=== PATIENT | female | born 1950 | race African-American/Black ===

== ENCOUNTER → 2021-02-04 10:31 | Outpatient (CLI) | payer OTHER, SELFPAY ==
--- NOTE | ~2021-02-04 | DEXA_ITS ---
Bone Density Report Name: Dayan Javier Age: 70 Sex: Female Ethnicity: White Date of : 1950 Indication: osteopenia; hysterectomy; Referring Provider: Isabella Land Study: Bone densitometry was performed. Exam Date: February 04, 2021 Accession number: [id number] Bone Density: Region BMD T-score Z-score Classification AP Spine (L1-L4) 0.920 -1.2 1.1 Osteopenia Femoral Neck (Left) 0.726 -1.1 0.8 Osteopenia Total Hip (Left) 0.815 -1.0 0.6 Normal Femoral Neck (Right) 0.717 -1.2 0.7 Osteopenia Total Hip (Right) 0.815 -1.0 0.6 Normal Total Hip Mean 0.815 -1.0 0.6 Normal World Health Organization criteria for BMD impression classify patients as: Normal (T-score at or above -1.0), Osteopenia (T-score between -1.0 and -2.5), or Osteoporosis (T-score at or below -2.5). 10-year Fracture Risk(1): Major Osteoporotic Fracture 4.4% Hip Fracture 1.0% Reported Risk Factors: [place] ([place]), Neck BMD=0.717, BMI=26.5, smoking (1) FRAX(R) Version 3.08. Fracture probability calculated for an untreated patient. Fracture probability may be lower if the patient has received treatment. Previous Exams: Region Exam Age BMD T-score BMD Change BMD Change Date g/cm2 vs Baseline vs Previous AP Spine(L1-L4) 02/04/2021 70 0.920 -1.2 0.033* 0.033* 12/27/2015 64 0.886 -1.5 Total Hip(Left) 02/04/2021 70 0.815 -1.0 -0.065* -0.065* 12/27/2015 64 0.880 -0.5 Total Hip(Right) 02/04/2021 70 0.815 -1.0 -0.055* -0.055* 12/27/2015 64 0.870 -0.6 *Denotes significance at 95% confidence level, LSC for AP Spine = 0.022 g/cm2, LSC for Total Hip = 0.027 g/cm2 Clinical Information Provided by Patient: Smokes Has used the following medications: Vitamin D Has the following medical conditions: Hysterectomy Patient maximum height was 65 Menopause Age: 43 No regular weight bearing exercise Does not regularly consume dairy products Drinks caffeinated beverages Onset of menses at age 10 Number of children 3 Impression: The patient has low bone mass, based on the Total Spine T-score. The patient has an estimated ten-year risk of hip fracture of 1% and an estimated ten-year risk of major fracture of 4.4%, based on the WHO FRAX algorithm. The patient has risk factors, including: smoking. The BMD for the Total Hip(Left) decreased, changing by -0.065 since the last DXA exam. The BMD for the Total Hip(Right) decreased,
--- NOTE | ~2021-02-04 | MM_ITS ---
EXAMINATION: MM screening jeanna BI w milagro HISTORY: Screening TECHNIQUE: Craniocaudal and mediolateral oblique 3-D tomosynthesis images were obtained and synthetic 2-D images were generated. CAD analysis was submitted and interpreted. COMPARISON: Comparison to multiple prior studies sequentially, with oldest reviewed study dated 10/2013. BREAST PARENCHYMAL COMPOSITION: The breasts are heterogeneously dense, which may obscure small masses . FINDINGS: There is no evidence of suspicious mass, calcification, or architectural distortion to sugg est malignancy in either breast. There has been no suspicious interval change. IMPRESSION: 1. No mammographic evidence of malignancy. 2. Recommend routine screening mammography in one year. BI-RADS Category 1: Negative Reviewed, dictated and finalized at location A.
== END ==
PROVIDERS: PCP Family Medicine; Visit Provider Nurse Practitioner Family
DX: Z12.31 Encounter for screening mammogram for malignant neoplasm of breast (principal); Z78.0 Asymptomatic menopausal state; M85.88 Other specified disorders of bone density and structure, other site; M85.852 Other specified disorders of bone density and structure, left thigh; M85.851 Other specified disorders of bone density and structure, right thigh
CPT/HCPCS: 77063; 77067; 77080

== ENCOUNTER 2021-07-08 14:32 | Observation (INO) | payer OTHER, SELFPAY ==
[2021-07-08] VITALS (17 sets, daily range): BP systolic 144–185; BP diastolic 70–80; PULSE 86–103; RESP 12–25; TEMP 36.9–37.8; O2SAT 96–100; BMI 25.8
--- NOTE | ~2021-07-08 | XR_ITS ---
EXAMINATION: XR chest 2V DATE: 07/08/2021 15:22 INDICATION: Chest pain for 5 days. TECHNIQUE: Frontal and lateral views of the chest were obtained. COMPARISON: Chest 2 views 02/06/2018 FINDINGS: There is a 2 cm nodule in left midlung zone. A calcified left lung nodule is consistent wit h old granulomatous disease. There are airspace opacities in the mid and lower lung zones. No pleural effusion or pneumothorax. Cardiomegaly is noted. IMPRESSION: 1. 2 cm nodule in left midlung zone suspicious for primary bronchogenic carcinoma. Chest CT with cont rast is recommended. I called this result to Dr. Cruz. 2. Mild airspace opacities in the mid and lower lung zones, likely atelectasis. 3. Cardiomegaly. Reviewed, dictated and finalized at location A. IMPRESSION: 1. 2 cm nodule in left midlung zone suspicious for primary bronchogenic carcino ma. Chest CT with contrast is recommended. I called this result to Dr. Cruz. 2. Mild airspace opacities in the mid and lower lung zones, likely atelectasis. 3. Cardiomegaly.
--- NOTE | ~2021-07-08 | CT_ITS ---
EXAMINATION: CT diagnostic chest wo con DATE: 07/08/2021 15:41 INDICATION: Rule out malignancy. Shortness of breath and chest pain TECHNIQUE: Computed tomography (CT) of the chest was performed without intravenous contrast. Addition al 3D reconstructions utilizing coronal maximum intensity projection (MIP) were performed. Automated exposure control and iterative reconstruction technique were employed. The dose-length product was 38 5.45 mGy-cm. COMPARISON: None FINDINGS: Mild emphysema. Scattered linear and bandlike discoid atelectasis in the lingula, right middle and bi lateral lower lobes. Peripheral wedge-shaped region of consolidation groundglass opacity at the lingu la which accounts for the masslike opacity on the prior radiographs with differential including atele ctasis, pneumonia or pulmonary infarct. Calcified left lower lobar nodules consistent with old granul omatous disease. A couple subcentimeter centrilobular groundglass nodules in the right upper lobe and superior segment of the right lower lobe which are most likely infectious/inflammatory in etiology. No pleural effusion. Cardiomegaly. Small amount of atherosclerotic coronary artery calcific location. Aortic valve calcification. No pericardial effusion. Thoracic aorta is normal in caliber. No patholo gically enlarged thoracic lymphadenopathy. Visualized upper abdomen is unremarkable. Moderate lower c ervical and mild to moderate thoracic and upper lumbar spondylosis. IMPRESSION: 1. Peripheral wedge-shaped region of consolidation groundglass opacity in the lingula corresponding t o the masslike opacity on the prior radiograph with appearance more consistent with atelectasis, pneu monia or pulmonary infarct. Recommend radiographic follow-up to resolution. 2. Mild emphysema. 3. Cardiomegaly. Reviewed, dictated and finalized at location A. IMPRESSION: 1. Peripheral wedge-shaped region of consolidation groundglass opacity in the l ingula corresponding to the masslike opacity on the prior radiograph with appea merrick more consistent with atelectasis, pneumonia or pulmonary infarct. Recomme nd radiographic follow-up to resolution. 2. Mild emphysema. 3. Cardiomegaly.
--- NOTE | ~2021-07-08 | US_ITS ---
EXAMINATION: US venous doppler [facility] DATE: 07/09/2021 09:02 INDICATION: Lower limb pain. Pulmonary embolism. TECHNIQUE: Grayscale ultrasound images without and with compression and Doppler ultrasound images of the bilateral lower extremity veins were obtained. COMPARISON: None. FINDINGS: The visualized portions of right common femoral vein, profunda (deep) femoral vein, femoral vein, pop liteal vein, posterior tibial veins, peroneal veins, gastrocnemius vein, soleal vein and greater saph enous vein outflow are patent. Noncompressible deep venous thrombosis in the left popliteal vein. The visualized portions of left co mmon femoral vein, profunda femoral vein, femoral vein, posterior tibial veins, peroneal veins, gastr ocnemius vein, soleal vein and greater saphenous vein outflow are patent. IMPRESSION: 1. Deep venous thrombosis throughout the left popliteal vein. 2. No deep venous thrombosis in the right lower limb. Reviewed, dictated and finalized at location A.
--- NOTE | ~2021-07-08 | CT_ITS ---
EXAMINATION: CTA chest PE protocol DATE: 07/08/2021 19:10 INDICATION: Chest pain TECHNIQUE: Computed tomography angiography (CTA) of the chest was performed with 100 mL Omnipaque-350 intravenous contrast timed to evaluate the pulmonary arteries. Coronal maximum intensity projection 3D-reconstructions were created by the technologist. The dose-length product (DLP) was 298.37 mGy-cm. Automated exposure control and iterative reconstruction technique were employed. COMPARISON: 1527 hours today FINDINGS: The pulmonary arteries are well-opacified. There are acute pulmonary emboli in segmental br anches of the right upper lobe, right middle lobe, right lower lobe, left upper lobe, left lower lobe , and lingula. The lingular airspace opacity described on earlier CT examination is again seen and li fredi reflects pulmonary infarct. Linear opacities of the lower lobes could also reflect pulmonary inf arct. Cardiomegaly is noted. There are no pathologically enlarged thoracic lymph nodes. There is a 12 mm nodule of the right thyroid lobe. There is mild emphysema. No pleural effusion or pneumothorax is identified. There is mild thoracic spondylosis. IMPRESSION: 1. Widespread bilateral pulmonary emboli. Areas of airspace opacity in the lower lobes and lingula co uld reflect pulmonary infarct. These findings were discussed with Dr. Lupe Kelly MD in the Emergency Department at 1935 hours on 07/08/2021. Reviewed, dictated and finalized at location A. IMPRESSION: 1. Widespread bilateral pulmonary emboli. Areas of airspace opacity in the lowe r lobes and lingula could reflect pulmonary infarct. These findings were discussed with Dr. Lupe Kelly MD in the Emergency Depar tment at 1935 hours on 07/08/2021.
--- NOTE | 2021-07-08 14:38 | ECG_ITS ---
Measurements Intervals [place] Rate: 97 P: 57 [place]: 169 QRS: -22 QRSD: 91 T: 54 QT: 348 QTc: 443 Interpretive Statements SINUS RHYTHM LEFT ATRIAL ENLARGEMENT CANNOT RULE OUT SEPTAL INFARCT, AGE INDETERMINATE BASELINE ARTIFACT- I, II, III, AVR, AVL, AVF, V2-V3 ABNORMAL ECG Electronically Signed On 07-09-2021 10:07:40 CDT by Angel Henley D.O.
[2021-07-08 15:06] LABS: Basophils Percent Auto 0.2 % (0.2-1.2); Eosinophils Percent Auto 0.5 % (0-4.4); Hematocrit 46.6 % (37.0-47.0); Hemoglobin 15.7 g/dL (12.0-15.0); Immature Granulocyte Absolute 0.06 K/mm3 (0.00-0.031); Immature Granulocyte Percent A 0.7 % (0-0.5); Lymphocytes Absolute Auto 1.43 K/mm3 (0.9-3.2); Lymphocytes Percent Auto 16.1 % (18.3-44.2); Mean Corpuscular HGB Conc 33.7 g/dl (32-36); Mean Corpuscular Hemoglobin 34.9 pg (26-34); Mean Corpuscular Volume 103.6 fl (80-100); Mean Platelet Volume 9.1 fl (7.4-10.4); Monocytes Percent Auto 10.8 % (2.6-8.5); Neutrophils Absolute Auto 6.4 K/mm3 (1.3-6.7); Neutrophils Percent Auto 71.7 % (45.5-73.1); Platelet Count Result 193 k/mm3 (150-375); Red Cell Distribution Width 14.4 % (11.5-14.5); White Blood Count 8.9 K/mm3 (4.5-10.0)
[2021-07-08 15:15] LABS: Prothrombin Time 12.8 Seconds (11.1-14.7)
[2021-07-08 15:16] LABS: Partial Thromboplastin Time 28.3 SECONDS (22.3-36.8)
[2021-07-08 15:27] LABS: Anion Gap 11 mmol/L (8-16); Blood Urea Nitrogen 6 mg/dL (7-17); Calcium 9.6 mg/dL (8.4-10.2); Carbon Dioxide 25 mmol/L (22-30); Chloride 98 mmol/L (98-107); Estimated CRCL calculation 76 ml/min; Estimated Glomerular Filt Rate > 60; Glucose 95 mg/dL (65-110); Potassium 3.4 mmol/L (3.4-5.0); Sodium 134 mmol/L (137-145)
[2021-07-08 15:39] LABS: Troponin I < 0.012 ng/mL (0.000-0.034)
--- NOTE | 2021-07-08 17:18 | ED.GENADULT ---
HPI - General Adult General Chief complaint: Chest Pain Stated complaint: chest pain Time Seen by Provider: 07/08/21 16:51 Source: patient History of Present Illness HPI narrative: Patient is a 70 y/o female complaining of mid sternal chest pain starting 4-5 days ago. She describes her chest pain as pressure and rates it as 6/10 currently. There is no pain radiation. There is no alleviating or exacerbating factor. She has some SOB, but no cough or fever. She also has some tingling on the bottom of her left foot starting today. Related Data Allergies Allergy/AdvReac Type Severity Reaction Status Date / Time aspirin Allergy Unknown Sweating Verified 07/08/21 13:56 Review of Systems Constitutional: Constitutional: Denies chills, Denies fever(s), Denies headache(s) and Denies weakness Eyes: Eyes: Denies blurry vision ENT: Denies headache(s) and Denies neck pain Cardiovascular: Cardiovascular: Reports chest pain and Reports dyspnea Respiratory: Respiratory: Denies cough and Reports dyspnea Gastrointestinal: Gastrointestinal: Denies abdominal pain, Denies diarrhea, Denies nausea and Denies vomiting Genitourinary: Genitourinary: Denies hematuria and Denies dysuria Musculoskeletal: Musculoskeletal: Denies back pain, Denies neck pain and Reports other (left leg pain) Neurologic: Denies headache(s) and Denies weakness PMFSH Past Medical History Medical History Hypertension Impaired fasting glucose Post menopausal problems Screening mammogram, encounter for Tingling of both feet Wellness examination Surgical History Surgical History History of hysterectomy Family History Family History Mother Hypertension Family history of coronary artery disease Father Family history of diabetes mellitus in first degree relative Family history of lung cancer Social History Social History Years smoked: 30 Smoking status: Current every day smoker Tobacco type: cigarettes Second hand tobacco smoke exposure: No Alcohol intake: current Drinks per week: 2 Substance use: never Substance use type: does not use Gender identity (if verbalized by the patient): Female Sexual Orientation (if Verbalized by the Patient): Straight or Heterosexual Exam Const: General: no acute distress and well developed Orientation/consciousness: oriented to person, oriented to place, oriented to time and patient oriented x3 HENMT: Head: normocephalic Ears: external ears normal General nose exam: Normal external nose present Eyes: General: appearance normal, both eyes and all related structures Conjunctivae: conjunctivae normal Neck: Neck: normal visual inspection and full ROM Chest: Chest palpation & inspection: normal inspection of the chest and no tenderness Resp: Effort & Inspection: normal respiratory effort Auscultation: clear to auscultation bilaterally Cardio: Rate: regular rate Rhythm: regular rhythm GI: GI Palp: No abdominal tenderness and Yes Soft to palpation Skin: General skin exam: normal color and turgor normal Neuro: General: oriented to person, oriented to place, oriented to time and patient oriented x3 Cognition (Neuro): normal cognition Extrem: General: normal to inspection, full ROM and no pedal edema Psych: Appearance: grossly normal Mental Status: mental status grossly normal Affect: normal affect Course Consultations Consultation #1: Discussed with Dr. Real, who agrees to admit. Date: 07/08/21 Time: 20:28 Vital Signs Vital signs: Vital Signs Temperature 36.9 C 07/08/21 14:43 Pulse Rate 103 H 07/08/21 14:43 Respiratory Rate 20 07/08/21 14:43 Blood Pressure 151/80 H 07/08/21 14:43 Pulse Oximetry 97 07/08/21 14:43 Temperature 36.9 C 07/08/21 14:43 Pulse Rat
[2021-07-08 18:13] LABS: Troponin I < 0.012 ng/mL (0.000-0.034)
[2021-07-08 18:15] LABS: D Dimer 3.46 ug/mL (<0.48)
[2021-07-08 19:53] LABS: Add Urine Microscopic? YES; Appearance Urine Clear (Clear); Bilirubin Urine Negative (Negative); Blood Urine 2+ (Negative); Color Urine Yellow (Yellow); Glucose Urine UA Negative (Negative); Ketones Urine 2+ mg/dL (Negative); Leukocyte Esterase Ur Negative LEU/UL (Negative); Mucus Urine Few /lpf; Nitrate Urine Negative (Negative); Protein Urine Negative (Negative); Specific Grav Ur 1.039 (1.001-1.035); Squamous Epithelial Cell Urine Few /hpf (Few); WBC Urine 0-3 /hpf
[2021-07-08 19:54] LABS: Prothrombin Time 12.7 Seconds (11.1-14.7)
[2021-07-08 19:55] LABS: Partial Thromboplastin Time 30.4 SECONDS (22.3-36.8)
[2021-07-08] MEDS: ENOXAPARIN 80 MG/0.8 ML SYRINGE 68 MG SUB-Q (20:00)
--- NOTE | 2021-07-08 22:33 | PM.IMHP ---
H&P: HPI History of Present Illness Date/Time: 07/08/21 22:33 Chief Complaint: Chest pain Narrative: Patient is a 70 y/o female complaining of left-sided chest pain starting about a week ago. The chest pain has been present constantly and approximately about 6 x 10 in intensity without any radiation or aggravating or elevating factor. There was associated shortness of breath. She was trying to see if this will go away on its own. She went to see her regular doctor today and reports she actually was feeling little better compared to previous days however with ongoing chest pain she was sent to the ER for evaluation. She reports that she also felt some tingling sensation in her left sole side forefoot. She denies any recent travel or any surgeries. Denies any history of DVT or PE in the past she does smoke. In the ER chest X showed 2 cm nodule in the left mid lung zone suspicious for primary bronchogenic carcinoma. Mild airspace opacities in the mid and lower lung zones likely atelectasis along with cardiomegaly A diagnosis CT chest was done which showed peripheral ways separate area of consultation ground-glass opacity in the lingula corresponding to the masslike opacity on the prior radiograph with appearance most consistent with atelectasis, pneumonia or pulmonary infarct. Along with mild emphysema and cardiomegaly seen CTA of chest was further done which showed widespread bilateral pulmonary emboli. Areas of airspace opacity in the lower lobes and lingula could reflect pulmonary infarct. Review of Systems Review of Systems: - CONSTITUTIONAL: Denies weight loss, fever and chills. - HEENT: Denies changes in vision and hearing - RESPIRATORY: Reports some SOB and denies cough. - CV: Denies palpitations and reports CP. - GI: Denies abdominal pain, nausea, vomiting and diarrhea. - : Denies dysuria and urinary frequency. - MSK: Denies myalgia and joint pain. - SKIN: Denies rash and pruritus. - NEUROLOGICAL: Denies headache and syncope. - PSYCHIATRIC: Denies recent changes in mood. Denies anxiety and depression. All systems reviewed & are unremarkable except as noted in HPI and below Constitutional: Constitutional: Reports fatigue and Reports weakness Neurologic: Reports weakness Endocrine: Endocrine: Reports fatigue [facility] Past Medical History Medical History (Updated 07/09/21 @ 03:40 by Jeremiah Real MD) Hypertension Impaired fasting glucose Post menopausal problems Screening mammogram, encounter for Tingling of both feet Wellness examination Surgical History Surgical History History of hysterectomy Family History Family History Mother Hypertension Family history of coronary artery disease Father Family history of diabetes mellitus in first degree relative Family history of lung cancer Social History Social History Smoking packs per day: 0.5 Smoking cigarettes per day: 10.0 Years smoked: 30 Smoking pack-years: 15.00 Smoking status: Current every day smoker Tobacco type: cigarettes Second hand tobacco smoke exposure: No Alcohol intake: current Drinks per week: 2 Substance use: never Substance use type: does not use Gender identity (if verbalized by the patient): Female Sexual Orientation (if Verbalized by the Patient): Straight or Heterosexual Spiritual care concerns: No Meds Home Medications and Allergies Home Medications Medication Instructions Recorded Confirmed Type cholecalciferol (vitamin D3) 50 50 mcg PO DAILY #30 cap 12/12/20 07/08/21 Rx mcg (2,000 unit) capsule amlodipine 5 mg tablet 5 mg PO DAILY #90 tablet 02/13/21 07/08/21 Rx hydrochlorothiazide 12.5 mg tablet 12.5 mg PO DAILY #90 tablet 02/13/21 07/08/21 Rx Allergies Allergy/AdvReac Type Severity Reaction Status Date / Time asp
--- NOTE | 2021-07-08 23:19 | ADMGEN ---
This patient, Dayan Javier, was admitted to [facility] Surg Room 324-02. Patient/family oriented to hospital policies and general routines including ID bracelet, bed and alarms, visiting hours, pain management, procedures, bathroom and other care routines, personal items, smoking policy, room service/diet, and visiting hours. Information on how to activate the Rapid Response Team has been discussed. Patient/Family are encouraged to report perceived risks to care and to ask questions if they do not understand what they are told or what they should do.
[2021-07-09] VITALS (10 sets, daily range): BP systolic 126–138; BP diastolic 55–72; PULSE 77–94; RESP 14–18; TEMP 36.5–37.8; O2SAT 95–100
--- NOTE | 2021-07-09 03:39 | ECG_ITS ---
Measurements Intervals [place] Rate: 78 P: 46 [place]: 178 QRS: -26 QRSD: 88 T: 9 QT: 378 QTc: 431 Interpretive Statements SINUS RHYTHM POSSIBLE LEFT ATRIAL ENLARGEMENT BASELINE ARTIFACT- I, II, V3, V5 BORDERLINE ECG Electronically Signed On 07-09-2021 9:54:36 CDT by Angel Henley D.O.
[2021-07-09] MEDS: hydroCHLOROthiazide 12.5 MG CAPSULE PO (09:03)
[2021-07-09] MEDS: ENOXAPARIN 80 MG/0.8 ML SYRINGE 70 MG SUB-Q ×2 (09:03→21:50)
[2021-07-09] MEDS: amLODIPine BESYLATE 5 MG TABLET PO (09:04)
[2021-07-09] MEDS: CHOLECALCIFEROL 1,000 UNITS TABLET 2000 UNITS PO (09:04)
--- NOTE | 2021-07-09 11:27 | PCCCNOTE ---
On 07/09/21, the student, [Yuni Llanos ], provided care and completed [facility] documentation on this patient. I have reviewed the student's documentation and agree with the findings.
--- NOTE | 2021-07-09 11:37 | PC.NURSE ---
On 07/09/21, the student, Lay Damon, provided care and completed [facility] documentation on this patient. I have reviewed the student's documentation and agree with the findings.
--- NOTE | 2021-07-09 13:25 | PM.IMPN ---
Progress Note: A&P Assessment and Plan (1) Pulmonary embolism: Qualifiers: Acute cor pulmonale presence: unspecified Chronicity: unspecified Pulmonary embolism type: unspecified Qualified Code(s): I26.99 - Other pulmonary embolism without acute cor pulmonale Code(s): I26.99 - Other pulmonary embolism without acute cor pulmonale Status: Acute Assessment and Plan: Chest pain and shortness of breath Chest xray Mild airspace opacities in the mid and lower lung zones, 2 CM nodule in left midlung zone suspicious for primary bronchogenic carcinoma Chest CT: Peripheral wedge-shaped region of consolidation ground glass opacity in the lingula corresponding to the masslike opacity on the prior radiograph with appearance more consistent with atelectasis, pneumonia or pulmonary infarct. Recommend radiographic follow-up to resolution. 2. Mild emphysema. 3. Cardiomegaly. Chest CTA: 1. Widespread bilateral pulmonary emboli. Areas of airspace opacity in the lower lobes and lingula could reflect pulmonary infarct. Venous Doppler Study: 1. Deep venous thrombosis throughout the left popliteal vein. 2. No deep venous thrombosis in the right lower limb. Lovenox 70mg BID (2) Opacity of lung on imaging study: Code(s): R91.8 - Other nonspecific abnormal finding of lung field Status: Acute Assessment and Plan: 1. Peripheral wedge-shaped region of consolidation groundglass opacity in the lingula corresponding to the masslike opacity on the prior radiograph with appearance more consistent with atelectasis, pneumonia or pulmonary infarct. Recommend radiographic follow-up to resolution. Outpatient follow up recommended (3) Tobacco abuse: Code(s): Z72.0 - Tobacco use Status: Acute Assessment and Plan: Smoking cessation counseling provided (4) Hypertension: Qualifiers: Hypertension type: essential hypertension Qualified Code(s): I10 - Essential (primary) hypertension Code(s): I10 - Essential (primary) hypertension Status: Acute Assessment and Plan: Current BP 126/55 Continue home amlodipine 5mg PO Daily, HCTZ 12.5mg PO Daily Trend BP Adjust medications as needed (5) Chest pain: Code(s): R07.9 - Chest pain, unspecified Status: Acute Assessment and Plan: Probably from PE EKG NSR, No ST elevation or abnormalities Seems to be resolved Troponins negative Time Spent With Patient Time with patient: 25 - 35 minutes Subjective Date/time seen: 07/09/21 1325 Interval history: Date/Time: 07/08/21 22:33 Narrative: Patient is a 70 y/o female complaining of left-sided chest pain starting about a week ago. The chest pain has been present constantly and approximately about 6 x 10 in intensity without any radiation or aggravating or elevating factor. There was associated shortness of breath. She was trying to see if this will go away on its own. She went to see her regular doctor today and reports she actually was feeling little better compared to previous days however with ongoing chest pain she was sent to the ER for evaluation. She reports that she also felt some tingling sensation in her left sole side forefoot. She denies any recent travel or any surgeries. Denies any history of DVT or PE in the past she does smoke. In the ER chest X showed 2 cm nodule in the left mid lung zone suspicious for primary bronchogenic carcinoma. Mild airspace opacities in the mid and lower lung zones likely atelectasis along with cardiomegaly A diagnosis CT chest was done which showed peripheral ways separate area of consultation ground-glass opacity in the lingula corresponding to the masslike opacity on the prior radiograph with appearance most consistent with atelectasis, pneumonia or pulmonary infarct. Along with mild emphysema and cardiomegaly seen CTA of chest was further done which showed widespread bila
[2021-07-10] VITALS (8 sets, daily range): BP systolic 126–131; BP diastolic 72–77; PULSE 68–91; RESP 18; TEMP 36.8–37.7; O2SAT 96–99
[2021-07-10] MEDS: ACETAMINOPHEN 325 MG TABLET 650 MG PO (01:00)
[2021-07-10 04:14] LABS: Add Urine Microscopic? YES; Appearance Urine Clear (Clear); Bilirubin Urine Negative (Negative); Blood Urine 1+ (Negative); Color Urine Yellow (Yellow); Glucose Urine UA Negative (Negative); Ketones Urine Trace mg/dL (Negative); Leukocyte Esterase Ur Negative LEU/UL (NEGATIVE); Mucus Urine Rare /lpf; Nitrate Urine Negative (Negative); Protein Urine Negative (Negative); RBC Urine 0-2 /hpf (0-2); Specific Grav Ur 1.014 (1.001-1.035); Squamous Epithelial Cell Urine Rare /hpf (Few); WBC Urine 0-3 /hpf (0-3)
[2021-07-10 06:34] LABS: Basophils Percent Auto 0.5 % (0.2-1.2); Eosinophils Absolute Auto 0.1 K/mm3 (0-0.3); Eosinophils Percent Auto 1.3 % (0-4.4); Hematocrit 40.9 % (37.0-47.0); Hemoglobin 14.2 g/dL (12.0-15.0); Immature Granulocyte Absolute 0.03 K/mm3 (0.00-0.031); Immature Granulocyte Percent A 0.5 % (0-0.5); Lymphocytes Absolute Auto 1.36 K/mm3 (0.9-3.2); Lymphocytes Percent Auto 22.7 % (18.3-44.2); Mean Corpuscular HGB Conc 34.7 g/dl (32-36); Mean Corpuscular Hemoglobin 34.2 pg (26-34); Mean Corpuscular Volume 98.6 fl (80-100); Mean Platelet Volume 9.3 fl (7.4-10.4); Monocytes Absolute Auto 0.9 K/mm3 (0.1-0.6); Monocytes Percent Auto 14.2 % (2.6-8.5); Neutrophils Absolute Auto 3.7 K/mm3 (1.3-6.7); Neutrophils Percent Auto 60.8 % (45.5-73.1); Platelet Count Result 207 k/mm3 (150-375); Red Blood Count 4.15 M/mm3 (4.2-5.4); Red Cell Distribution Width 13.5 % (11.5-14.5)
[2021-07-10 06:50] LABS: Alanine Aminotransferase 14 U/L (4-35); Albumin Level 3.7 g/dL (3.5-5.1); Alkaline Phosphatase 62 U/L (38-126); Anion Gap 8 mmol/L (8-16); Aspartate Amino Transferase 26 U/L (14-36); Bilirubin,Total 1.2 mg/dL (0.2-1.3); Blood Urea Nitrogen 5 mg/dL (7-17); Calcium 9.1 mg/dL (8.4-10.2); Carbon Dioxide 27 mmol/L (22-30); Chloride 99 mmol/L (98-107); Estimated CRCL calculation 76 ml/min; Estimated Glomerular Filt Rate > 60; Glucose 106 mg/dL (65-110); Magnesium 1.8 mg/dL (1.6-2.3); Potassium 3.1 mmol/L (3.4-5.0); Sodium 134 mmol/L (137-145)
[2021-07-10] MEDS: ENOXAPARIN 80 MG/0.8 ML SYRINGE 70 MG SUB-Q (08:31)
[2021-07-10] MEDS: hydroCHLOROthiazide 12.5 MG CAPSULE PO (08:31)
[2021-07-10] MEDS: amLODIPine BESYLATE 5 MG TABLET PO (08:32)
[2021-07-10] MEDS: CHOLECALCIFEROL 1,000 UNITS TABLET 2000 UNITS PO (08:32)
--- NOTE | 2021-07-10 14:35 | PM.DS ---
DS: Admitting Diagnosis Discharge Date Date of service 07/10/21 14:36 Admitting Diagnosis Pulmonary emboli DS: Discharge Diagnosis Discharge Diagnosis (1) Pulmonary embolism: Qualifiers: Acute cor pulmonale presence: unspecified Chronicity: unspecified Pulmonary embolism type: unspecified Qualified Code(s): I26.99 - Other pulmonary embolism without acute cor pulmonale Code(s): I26.99 - Other pulmonary embolism without acute cor pulmonale Status: Acute Assessment and Plan: Chest pain and shortness of breath Chest xray Mild airspace opacities in the mid and lower lung zones, 2 CM nodule in left midlung zone suspicious for primary bronchogenic carcinoma Chest CT: Peripheral wedge-shaped region of consolidation ground glass opacity in the lingula corresponding to the masslike opacity on the prior radiograph with appearance more consistent with atelectasis, pneumonia or pulmonary infarct. Recommend radiographic follow-up to resolution. 2. Mild emphysema. 3. Cardiomegaly. Chest CTA: 1. Widespread bilateral pulmonary emboli. Areas of airspace opacity in the lower lobes and lingula could reflect pulmonary infarct. Venous Doppler Study: 1. Deep venous thrombosis throughout the left popliteal vein. 2. No deep venous thrombosis in the right lower limb. Lovenox 70mg BID (2) Opacity of lung on imaging study: Code(s): R91.8 - Other nonspecific abnormal finding of lung field Status: Acute Assessment and Plan: 1. Peripheral wedge-shaped region of consolidation groundglass opacity in the lingula corresponding to the masslike opacity on the prior radiograph with appearance more consistent with atelectasis, pneumonia or pulmonary infarct. Recommend radiographic follow-up to resolution. Outpatient follow up recommended (3) Tobacco abuse: Code(s): Z72.0 - Tobacco use Status: Acute Assessment and Plan: Smoking cessation counseling provided (4) Hypertension: Qualifiers: Hypertension type: essential hypertension Qualified Code(s): I10 - Essential (primary) hypertension Code(s): I10 - Essential (primary) hypertension Status: Acute Assessment and Plan: Current BP 126/55 Continue home amlodipine 5mg PO Daily, HCTZ 12.5mg PO Daily Trend BP Adjust medications as needed (5) Chest pain: Code(s): R07.9 - Chest pain, unspecified Status: Acute Assessment and Plan: Probably from PE EKG NSR, No ST elevation or abnormalities Seems to be resolved Troponins negative DS: Summary Hospital Course Hospital Course: Patient is a 70 year old female with a past medical history of hypertension and GERD who presented to the ED with shortness of breath and chest pain for the last few days. CTA showed patient had a bilateral PE venous Doppler showed she had a DVT in her popliteal vein. Patient was started on Lovenox and we will be going home on Eliquis. Has have remained stable throughout the visit and patient explains that she feels better and she is not experience any chest pain, shortness of breath, weakness or fatigue. Chest xray did show a 2cm nodule on the lung, and the CTA shows 12mm nodule on the thyroid. Will send patient home with reports to follow up with PCP and get further instruction. I just think that it is kind of weird that it not on all the scans. Time Spent with Patient Time attestation: Total time spent providing and/or coordinating discharge services: 48 minutes Exam Const: General: cooperative, healthy appearing, no acute distress, well developed, alert and awake Nutritional Appearance: well nourished Orientation/consciousness: oriented to person, oriented to place, oriented to time and patient oriented x3 Limitations: no limitations HENMT: Head: normal to inspection Ears: hearing grossly normal bilaterally General nose exam: Normal external nose present Mout
[2021-07-10] MEDS: POTASSIUM CHLORIDE 20 MEQ TABLET 60 MEQ PO (16:20)
== END 2021-07-10 17:07 | disposition home or self-care (01) ==
LOC: ANHED 21:18 → ANH3MEDSUR 22:30
PROVIDERS: Emergency Medicine; Nurse Practitioner; Admitting Provider Internal Medicine; Emergency Provider Emergency Medicine; PCP Family Medicine; Visit Provider Internal Medicine Critical Care Medicine
DX: I26.99 Other pulmonary embolism without acute cor pulmonale (principal); R91.8 Other nonspecific abnormal finding of lung field; I82.432 Acute embolism and thrombosis of left popliteal vein; R07.9 Chest pain, unspecified; I10 Essential (primary) hypertension; R06.02 Shortness of breath; F17.210 Nicotine dependence, cigarettes, uncomplicated; M79.604 Pain in right leg; K21.9 Gastro-esophageal reflux disease without esophagitis
CPT/HCPCS: 36415; 71046; 71250; 71275; 80048; 80053; 81001; 83735; 84484; 85025; 85380; 85610; 85730; 87040; 93005; 93970; 96365; 96366; 96372; 99285; A9270; G0378; J1650; J1956; Q9967

== ENCOUNTER 2021-07-21 13:53 | Outpatient (CLI) | payer OTHER, SELFPAY ==
--- NOTE | ~2021-07-21 | US_ITS ---
EXAMINATION: US thyroid EXAM DATE: 07/21/2021 14:07 INDICATION: E04.1 - Nontoxic single thyroid nodule TECHNIQUE: Multiple grayscale and Doppler images of the thyroid were obtained (by a technologist who performed the scan) and subsequently reviewed. Individual nodules and recommendations may be reporte d in accordance with TI-RADS system as designated by the 2017 ACR White Paper TI-RADS committee. The re is no prior study for comparison. FINDINGS: The right thyroid lobe measures 5.5 x 1.9 x 1.8 cm, the left measuring 3.7 x 1.2 x 1.4 cm. Dimensions are mildly enlarged. There are several thyroid nodules, largest with solid component in the lower po le of the right kidney measuring 1.5 x 1.0 x 1.7 cm, mixed cystic and solid (1 point), hypoechoic (2 points), wider than tall, smooth well defined margin, without echogenic foci, category TR3 for this n odule. IMPRESSION: 1. Multinodular goiter. 2. Recommend one-year follow-up. Reviewed, dictated and finalized at location A.
== END 2021-07-21 13:54 ==
LOC: MICIMG 13:53
PROVIDERS: PCP Family Medicine; Visit Provider Family Medicine
DX: E04.2 Nontoxic multinodular goiter (principal)
CPT/HCPCS: 76536

== ENCOUNTER 2021-10-27 14:00 | Outpatient (CLI) | payer OTHER, SELFPAY ==
--- NOTE | ~2021-10-27 | CT_ITS ---
EXAMINATION: CTA chest PE protocol DATE: 10/27/2021 14:29 INDICATION: Widespread pulmonary emboli TECHNIQUE: Computed tomography angiography (CTA) of the chest was performed with 100 mL Omnipaque-350 intravenous contrast timed to evaluate the pulmonary arteries. Coronal maximum intensity projection 3D-reconstructions were created by the technologist. Automated exposure control and iterative reconst ruction technique were employed. Exam dose: 266.10 mGy-cm total exam DLP. COMPARISON: 07/08/2021 CT pulmonary scan FINDINGS: There is nearly complete resolution of bilateral pulmonary emboli since October 27, 2021. No thoracic aortic aneurysm or dissection. Normal heart size. No pericardial or pleural effusion. No hilar or mediastinal mass lesion or lymphadenopathy. No pericardial or pleural effusion. There is improvement of bilateral pulmonary infiltrates and/atelectasis since 07/08/2021. IMPRESSION: Nearly complete resolution of bilateral pulmonary emboli since 03/2022 Improvement of bilateral pulmonary infiltrates since 07/08/2021; mild residual infiltrates primarily in the lingula and lower lobes Reviewed, dictated and finalized at Location A. Reviewed, dictated and finalized at location A. RPRETIVE PROGRAM COORDINATOR IMPRESSION: Nearly complete resolution of bilateral pulmonary emboli since Improvement of bilateral pulmonary infiltrates since 07/08/2021; mild residual infiltrates primarily in the lingula and lower lobes
[2021-10-27 14:26] LABS: Estimated Glomerular Filt Rate > 60
== END 2021-10-27 14:01 | disposition home or self-care (01) ==
LOC: ANHIMG 14:07
PROVIDERS: PCP Family Medicine; Visit Provider Family Medicine
DX: I26.99 Other pulmonary embolism without acute cor pulmonale (principal); R91.8 Other nonspecific abnormal finding of lung field
CPT/HCPCS: 71275; Q9967

== ENCOUNTER → 2022-05-08 11:42 | Outpatient (CLI) | payer MEDICARE, SELFPAY ==
--- NOTE | ~2022-05-08 | MM_ITS ---
EXAMINATION: MM screening jeanna BI w milagro HISTORY: Screening mammogram TECHNIQUE: Craniocaudal and mediolateral oblique 3-D tomosynthesis images were obtained and synthetic 2-D images were generated. CAD analysis was submitted and interpreted. COMPARISON: 02/04/2021, 01/23/2019, 02/11/2017 bilateral screening mammogram examinations BREAST PARENCHYMAL COMPOSITION: The breasts are heterogeneously dense, which may obscure small masses . FINDINGS: Occasional benign calcifications. Stable mild fibroglandular asymmetry. There is no evidenc e of suspicious mass, calcification, or architectural distortion to suggest malignancy in either [address]. There has been no suspicious interval change. IMPRESSION: 1. No mammographic evidence of malignancy. 2. Recommend routine screening mammography in one year. BI-RADS Category 2: Benign finding(s). Reviewed, dictated and finalized at location A.
== END ==
PROVIDERS: PCP Family Medicine; Visit Provider Family Medicine
DX: Z12.31 Encounter for screening mammogram for malignant neoplasm of breast (principal)
CPT/HCPCS: 77063; 77067

== ENCOUNTER 2023-04-06 15:11 | Outpatient (CLI) | payer MEDICARE, SELFPAY ==
--- NOTE | ~2023-04-06 | XR_ITS ---
[id number] 04/06/2023 15:27 Indication: Left knee pain Procedure: 2 views left knee Comparison: No prior studies for comparison. Findings: Moderate osteoarthritis of the left knee. No fracture, subluxation or dislocation. No signi ficant joint effusion. No foreign bodies. There is atherosclerosis. Impression: 1: Moderate osteoarthritis of the left knee. Reviewed, dictated and finalized at location A. Impression: 1: Moderate osteoarthritis of the left knee.
== END 2023-04-06 15:12 ==
LOC: MICIMG 15:13
PROVIDERS: PCP Family Medicine; Visit Provider Family Medicine
DX: M17.12 Unilateral primary osteoarthritis, left knee (principal)
CPT/HCPCS: 73560

== ENCOUNTER 2023-05-10 14:06 | Outpatient (CLI) | payer MEDICARE, SELFPAY ==
--- NOTE | ~2023-05-10 | CT_ITS ---
EXAMINATION: CTA chest PE protocol DATE: 05/10/2023 14:52 INDICATION: Shortness of breath and cough. Chronic pulmonary emboli. TECHNIQUE: Computed tomography angiography (CTA) of the chest was performed with 100 mL Omnipaque-350 intravenous contrast timed to evaluate the pulmonary arteries. Coronal maximum intensity projection 3D-reconstructions were created by the technologist. Automated exposure control and iterative reconst ruction technique were employed. The dose-length product was 308.24 mGy-cm. COMPARISON: Chest CT 10/27/21 FINDINGS: The lungs demonstrate mild atelectasis. A calcified left lung nodule and calcium left hilar lymph nodes are consistent with old granulomatous disease. No pleural effusion. The heart size is no rmal. No pericardial effusion. There is no pulmonary embolus. There is mild thoracic spondylosis. The re is mild chronic anterior wedging of T11-L1 vertebral bodies. IMPRESSION: 1. No pulmonary embolus. Reviewed, dictated and finalized at location A. IMPRESSION: 1. No pulmonary embolus.
[2023-05-10 14:39] LABS: Estimated Glomerular Filt Rate > 60
== END 2023-05-10 14:07 | disposition home or self-care (01) ==
PROVIDERS: PCP Family Medicine; Visit Provider Family Medicine
DX: I26.99 Other pulmonary embolism without acute cor pulmonale (principal)
CPT/HCPCS: 71275; Q9967

== ENCOUNTER 2023-07-23 14:32 | Outpatient (CLI) | payer MEDICARE, SELFPAY ==
[2023-07-30 19:27] LABS: Antithrombin III Activity 87 % normal (80-135); Factor V Leiden Mutation NEGATIVE; Protein S Antigen, Free 118 % normal (50-147)
== END 2023-07-23 14:33 | disposition home or self-care (01) ==
PROVIDERS: PCP Family Medicine; Visit Provider Physician Assistant
DX: I26.99 Other pulmonary embolism without acute cor pulmonale (principal)
CPT/HCPCS: 36415; 81240; 81241; 85301; 85303; 85306

== ENCOUNTER 2023-09-17 03:35 | Day surgery (SDC) | payer MEDICARE, SELFPAY ==
[2023-09-02 09:21] VITALS: BMI 28.6
--- NOTE | 2023-09-15 09:59 | SUR.PREOP ---
Patient called regarding upcoming procedure. Message left on pt's voicemail regarding appointment times.
[2023-09-17 08:42] VITALS: BP 130/66; PULSE 92; RESP 16; TEMP 36.4; O2SAT 99
[2023-09-17] MEDS: LACTATED RINGERS 1,000 ML 150 ML IV CONT (08:58)
--- NOTE | 2023-09-17 09:12 | PM.HPGS ---
History of Present Illness History of Present Illness Consent: Risks, benefits, and alternatives have been discussed and questions answered. Patient agrees to proceed with procedure. Chief complaint: neoplasia screening Narrative: Dayan Javier is a 72 year old female Presents for screening colonoscopy. Patient has a history of mucosal polyp that was removed from the colon 5 years ago. Patient reports that her current weight appetite and bowel movements are normal. She denies abdominal pain. Patient has had no bleeding. Patient presents today for neoplasia screening. Review of Systems Review of Systems: Review of systems noncontributory. [facility] Past Medical History Medical History Arthritis of left knee Hypertension Impaired fasting glucose Multinodular goiter Post menopausal problems Screening mammogram, encounter for Tingling of both feet Wellness examination Surgical History Surgical History History of hysterectomy History of knee surgery left knee Family History Family History Mother Hypertension Family history of coronary artery disease Father Family history of diabetes mellitus in first degree relative Family history of lung cancer Social History Social History Social History: Smoking packs per day: 0.5 Smoking cigarettes per day: 10.0 Years smoked: 30 Smoking pack-years: 15.00 Smoking status: Light tobacco smoker Tobacco type: cigarettes Second hand tobacco smoke exposure: No Alcohol intake: current Drinks per week: 2 Substance use: never Substance use type: does not use Lack of Transportation: No Lack of Food: Never True Current Housing: I Have Housing Concerned About Future Housing: No Difficulty Paying Gas/Electric Bills: No Difficulty Paying for Meds: No Currently Unemployed: No Education: High School Diploma/GED Difficulty w/ Childcare or Family Care: No Living arrangements: alone Occupation/Education: retired Gender identity (if verbalized by the patient): Female Sexual Orientation (if Verbalized by the Patient): Straight or Heterosexual Spiritual care concerns: No Meds Home Medications and Allergies Home Medications Medication Instructions Recorded Confirmed Type cholecalciferol (vitamin D3) 1,250 1,250 mcg PO WEEKLY #12 caps 04/21/22 09/02/23 Rx mcg (50,000 unit) capsule amlodipine 5 mg tablet 5 mg PO DAILY #90 tabs 05/05/23 09/17/23 Rx hydrochlorothiazide 12.5 mg tablet 12.5 mg PO DAILY #90 tabs 05/05/23 09/17/23 Rx Allergies Allergy/AdvReac Type Severity Reaction Status Date / Time aspirin Allergy Unknown Sweating Verified 09/17/23 08:39 Vital Signs Vital Signs - 24 hr 09/17/23 08:42 Temperature 97.5 F L Pulse Rate 92 Respiratory Rate 16 Blood Pressure 130/66 Pulse Oximetry 99 Oxygen Delivery Room Air Exam Narrative: Physical exam reveals patient to be alert. Vital signs stable. HEENT exam is unremarkable. Patient is anicteric. Lungs are clear to auscultation and percussion. Heart is without murmur or extra sounds. Abdomen bowel sounds are present soft nontender with no organomegaly. Digital external rectal exam normal. Assessment and Plan Assessment and plan (1) Encounter for screening colonoscopy: Code(s): Z12.11 - Encounter for screening for malignant neoplasm of colon Status: Acute Assessment and Plan: Patient presents today for screening colonoscopy. She appears to be at average risk for colon polyps. Further recommendations may be given after endoscopy.
--- NOTE | 2023-09-17 09:43 | WPDANESEPPF ---
Anes - Initial Pre Proc Eval Procedure: Operation Date: 09/17/23 10:00 Proposed Procedures p Colonoscopy - Irving Roth MD Date/Time: 09/17/23 09:43 Surgeon: Irving Roth MD Pre Op Diagnosis: neoplasia screening Patient Data Age: 72 Gender: F Height: 1.65 m Weight: 74.4 kg Last Vital Signs Temp 97.5 F L 09/17/23 08:42 Pulse 92 09/17/23 08:42 Resp 16 09/17/23 08:42 BP 130/66 09/17/23 08:42 Pulse Ox 99 09/17/23 08:42 O2 Del Method Room Air 09/17/23 08:42 Allergies Allergy/AdvReac Type Severity Reaction Status Date / Time aspirin Allergy Unknown Sweating Verified 09/17/23 08:39 Home Medications Medication Instructions Recorded Confirmed Type cholecalciferol (vitamin D3) 1,250 1,250 mcg PO WEEKLY #12 caps 04/21/22 09/02/23 Rx mcg (50,000 unit) capsule amlodipine 5 mg tablet 5 mg PO DAILY #90 tabs 05/05/23 09/17/23 Rx hydrochlorothiazide 12.5 mg tablet 12.5 mg PO DAILY #90 tabs 05/05/23 09/17/23 Rx Patient hx anesthesia problems: none Family hx anesthesia problems: none Results Review: All pre-operative results and documents have been reviewed as part of the pre-operative evaluation. [facility] Past Medical History Medical History Arthritis of left knee Hypertension Impaired fasting glucose Multinodular goiter Post menopausal problems Screening mammogram, encounter for Tingling of both feet Wellness examination Surgical History Surgical History History of hysterectomy History of knee surgery left knee Family History Family History Mother Hypertension Family history of coronary artery disease Father Family history of diabetes mellitus in first degree relative Family history of lung cancer Social History Social History Social History: Smoking packs per day: 0.5 Smoking cigarettes per day: 10.0 Years smoked: 30 Smoking pack-years: 15.00 Smoking status: Light tobacco smoker Tobacco type: cigarettes Second hand tobacco smoke exposure: No Alcohol intake: current Drinks per week: 2 Substance use: never Substance use type: does not use Lack of Transportation: No Lack of Food: Never True Current Housing: I Have Housing Concerned About Future Housing: No Difficulty Paying Gas/Electric Bills: No Difficulty Paying for Meds: No Currently Unemployed: No Education: High School Diploma/GED Difficulty w/ Childcare or Family Care: No Living arrangements: alone Occupation/Education: retired Gender identity (if verbalized by the patient): Female Sexual Orientation (if Verbalized by the Patient): Straight or Heterosexual Spiritual care concerns: No Anes - Eval Final PreProcedure Day of Procedure 09/17/23 09:43 Patient weight: normal Heart: regular rate and rhythm Lungs: clear to auscultation Airway: Mallampati scale class II Neurological: alert and oriented Last oral intake: >/= 8 hours ASA classification: III Emergent: no Anesthetic plan: proceed Anesthesia type and monitoring: general GIVS and standard monitoring Results Review: All pre-operative results and documents have been reviewed as part of the pre-operative evaluation. Informed Consent: The patient's anesthetic plan and its attendant risks and benefits were discussed with the patient/family/POA. Questions were solicited and answers provided to the satisfaction of the patient/family/POA.
[2023-09-17 10:35] VITALS: BP 110/63; PULSE 94; RESP 21; O2SAT 99
[2023-09-17 10:45] VITALS: BP 118/70; PULSE 77; RESP 18; O2SAT 100
[2023-09-17 10:55] VITALS: BP 114/57; PULSE 68; RESP 18; O2SAT 100
== END 2023-09-17 11:03 | disposition home or self-care (01) ==
PROVIDERS: PCP Family Medicine; Visit Provider Internal Medicine Gastroenterology
PROC: 0DJD8ZZ Inspection of Lower Intestinal Tract, Via Natural or Artificial Opening Endoscopic (ICD-10-PCS; CPT 45378; principal; 2023-09-17 10:00)
DX: Z12.11 Encounter for screening for malignant neoplasm of colon (principal); D12.5 Benign neoplasm of sigmoid colon; D12.2 Benign neoplasm of ascending colon; D12.0 Benign neoplasm of cecum; K57.30 Diverticulosis of large intestine without perforation or abscess without bleeding; K64.8 Other hemorrhoids; I10 Essential (primary) hypertension; F17.210 Nicotine dependence, cigarettes, uncomplicated
CPT/HCPCS: 45385; 88305; J2704; J7120

== ENCOUNTER → 2023-11-09 12:14 | Outpatient (CLI) | payer MEDICARE, SELFPAY ==
--- NOTE | ~2023-11-09 | MM_ITS ---
EXAMINATION: MM screening jeanna BI w milagro HISTORY: Screening TECHNIQUE: Craniocaudal and mediolateral oblique 3-D tomosynthesis images were obtained and synthetic 2-D images were generated. CAD analysis was submitted and interpreted. COMPARISON: Comparison to multiple prior studies sequentially, with oldest reviewed study dated 04/2016. BREAST PARENCHYMAL COMPOSITION: Not dense: There are scattered areas of fibroglandular density. FINDINGS: There is no evidence of suspicious mass, calcification, or architectural distortion to sugg est malignancy in either breast. There has been no suspicious interval change. IMPRESSION: 1. No mammographic evidence of malignancy. 2. Recommend routine screening mammography in one year. BI-RADS Category 1: Negative Reviewed, dictated and finalized at location A. ILIZATION SPECIALIST
--- NOTE | ~2023-11-09 | DEXA_ITS ---
Bone Density Report Name: MIMI DE LA TORRE Age: 72 Sex: Female Ethnicity: Black Date of : 1950 Indication: osteopenia; hysterectomy; Referring Provider: ROSIE JIN Study: Bone densitometry was performed. Exam Date: November 09, 2023 Accession number: [id number] Bone Density: Region BMD T-score Z-score Classification AP Spine (L1-L4) 0.914 -1.2 0.5 Osteopenia Femoral Neck (Left) 0.691 -1.4 -0.3 Osteopenia Total Hip (Left) 0.793 -1.2 -0.3 Osteopenia Femoral Neck (Right) 0.712 -1.2 -0.1 Osteopenia Total Hip (Right) 0.807 -1.1 -0.2 Osteopenia Total Hip Mean 0.800 -1.2 -0.3 Osteopenia World Health Organization criteria for BMD impression classify patients as: Normal (T-score at or above -1.0), Osteopenia (T-score between -1.0 and -2.5), or Osteoporosis (T-score at or below -2.5). 10-year Fracture Risk(1): Major Osteoporotic Fracture 5.0% Hip Fracture 1.4% Reported Risk Factors: [place] (Black), Neck BMD=0.691, BMI=27.9, smoking (1) FRAX(R) Version 3.08. Fracture probability calculated for an untreated patient. Fracture probability may be lower if the patient has received treatment. Previous Exams: Region Exam Age BMD T-score BMD Change BMD Change Date g/cm2 vs Baseline vs Previous AP Spine(L1-L4) 11/09/2023 72 0.914 -1.2 0.028* -0.006 02/04/2021 70 0.920 -1.2 0.033* 0.033* 12/27/2015 64 0.886 -1.5 Total Hip(Left) 11/09/2023 72 0.793 -1.2 -0.087* -0.022 02/04/2021 70 0.815 -1.0 -0.065* -0.065* 12/27/2015 64 0.880 -0.5 Total Hip(Right) 11/09/2023 72 0.807 -1.1 -0.063* -0.008 02/04/2021 70 0.815 -1.0 -0.055* -0.055* 12/27/2015 64 0.870 -0.6 *Denotes significance at 95% confidence level, LSC for AP Spine = 0.022 g/cm2, LSC for Total Hip = 0.027 g/cm2 Clinical Information Provided by Patient: Smokes Has used the following medications: Vitamin D Has the following medical conditions: Hysterectomy Patient maximum height was 65 Menopause Age: 26 No regular weight bearing exercise Does not regularly consume dairy products Onset of menses at age 10 Number of children 3 Impression: The patient has low bone mass, based on the Left Femoral Neck T-score. The patient has an estimated ten-year risk of hip fracture of 1.4% and an estimated ten-year risk of major fracture of 5%, based on the WHO FRAX algorith
== END ==
PROVIDERS: PCP Physician Assistant; Visit Provider Physician Assistant
DX: Z12.31 Encounter for screening mammogram for malignant neoplasm of breast (principal); M85.89 Other specified disorders of bone density and structure, multiple sites; Z78.0 Asymptomatic menopausal state
CPT/HCPCS: 77063; 77067; 77080

== ENCOUNTER 2024-06-08 10:33 | Outpatient (CLI) | payer MEDICARE, SELFPAY ==
--- NOTE | ~2024-06-08 | US_ITS ---
EXAMINATION: US thyroid DATE: 06/08/2024 11:09 INDICATION: Nontoxic multinodular goiter. TECHNIQUE: Multiple ultrasound images of the thyroid were obtained. COMPARISON: Ultrasound 07/21/2021 FINDINGS: The right thyroid lobe measures 4.0 x 2.2 x 1.6 cm. The left thyroid lobe measures 3.6 x 1.2 x 1.3 c m. In the right thyroid lobe, there is a 15 mm almost entirely cystic nodule (TI-RADS TR1). In the l eft thyroid lobe, there is a 7 mm mixed cystic and solid, hypoechoic, wider than tall nodule with smo oth margin without echogenic foci (TR3). In the right thyroid lobe, there is a 16 mm mixed cystic and solid, isoechoic, wider than tall nodule with ill-defined margin without echogenic foci (TR2). IMPRESSION: 1. Thyroid nodules, likely not clinically significant. No follow-up is needed. Reviewed, dictated and finalized at location A.
--- NOTE | ~2024-06-08 | CT_ITS ---
CT Scan of the Chest without Contrast: Clinical Indication: Lung cancer screening, nicotine dependence Technique: Contiguous sections were acquired throughout the chest without intravenous contrast. Dose reduction technique was used on this scan by utilizing automated exposure control and iterative recon struction technique. The dose-length product (DLP) was 65.61 mGy-cm. COMPARISON: 05/10/2023 Findings: There is no evidence of any significant mediastinal, hilar or axillary lymphadenopathy. The mediastin al soft tissues appear normal. There is no evidence of pleural or pericardial effusion. Calcified left basilar granuloma present. Follow minimal hypoventilatory changes at the lung bases.. Images through the upper abdomen reveal no abnormalities. Impression: Lung RADS 2: Benign appearance. 12 month follow-up screening CT advised. Reviewed, dictated and finalized at [facility]. Impression: Lung RADS 2: Benign appearance. 12 month follow-up screening CT advised.
== END 2024-06-08 10:34 | disposition home or self-care (01) ==
LOC: MICIMG 10:34
PROVIDERS: PCP Family Medicine; Visit Provider Physician Assistant
DX: Z12.2 Encounter for screening for malignant neoplasm of respiratory organs (principal); E04.2 Nontoxic multinodular goiter; Z87.891 Personal history of nicotine dependence
CPT/HCPCS: 71271; 76536

== ENCOUNTER 2024-08-02 14:37 | Outpatient (CLI) | payer MEDICARE, SELFPAY ==
--- NOTE | ~2024-08-02 | US_ITS ---
EXAMINATION: US carotid duplex BI DATE: 08/02/2024 15:17 INDICATION: Transient cerebral ischemic attack TECHNIQUE: Grayscale, color Doppler, and pulsed Doppler images of the cervical carotid arteries were obtained. The degree of vessel stenosis is placed in one of the following categories: normal, <50%, 5 0-69%, >=70% but less than near-occlusion, near-occlusion, or total occlusion. Note that percent sten osis relative to normal distal artery lumen diameter is indirectly measured from velocity measurement s as described by Rodolfo, et al. Radiology 2003; 229:340-346. COMPARISON: None. FINDINGS: RIGHT: The right common carotid artery (CCA) peak systolic velocity (PSV) is 56 cm/s. The right internal car otid artery (ICA) PSV is 94 cm/s. The right ICA end-diastolic velocity (EDV) is 32 cm/s. The right IC A/CCA PSV ratio is 1.7. Grayscale and color Doppler images yield an estimate of <50% diameter reducti on from plaque in the ICA. The external carotid artery (ECA) PSV is 62 cm/s. There is antegrade flow in the right vertebral artery. LEFT: The left CCA PSV is 107 cm/s. The left ICA PSV is 123 cm/s. The left ICA EDV is 28 cm/s. The left ICA /CCA PSV ratio is 1.1. Grayscale and color Doppler images yield an estimate of <50% diameter reductio n from plaque in the ICA. The ECA PSV is 145 cm/s. There is antegrade flow in the left vertebral cyndi ry. IMPRESSION: 1. <50% stenosis in the right internal carotid artery. 2. <50% stenosis in the left internal carotid artery. Reviewed, dictated and finalized at location B. ESTION CLERK
--- NOTE | ~2024-08-02 | CT_ITS ---
EXAMINATION: CT brain wo con DATE: 08/02/2024 14:57 INDICATION: Transient cerebral ischemic attack, unspecified. TECHNIQUE: Computed tomography (CT) of the head was performed without intravenous contrast. The mA wa s adjusted according to patient size. Iterative reconstruction technique was employed. The dose-lengt h product was 681.00 mGy-cm. COMPARISON: None FINDINGS: There are scattered areas of low attenuation in the cerebral white matter, which is within normal limits for the patient's age. There is no intracranial hemorrhage, acute infarction, or abnorm al intracranial mass lesion. The ventricles are normal in size. There is mild mucosal thickening in t he paranasal sinuses. There is a small right mastoid effusion. There are likely changes of right ocul ar lens replacement surgery. IMPRESSION: 1. Normal aging brain. Reviewed, dictated and finalized at location A. CULTURE DEPARTMENT CHAIR IMPRESSION: 1. Normal aging brain.
== END 2024-08-02 14:38 | disposition home or self-care (01) ==
PROVIDERS: PCP Family Medicine; Visit Provider Family Medicine
DX: I65.23 Occlusion and stenosis of bilateral carotid arteries (principal)
CPT/HCPCS: 70450; 93880

== ENCOUNTER 2024-08-30 12:33 | Outpatient (CLI) | payer MEDICARE, SELFPAY ==
--- NOTE | 2024-08-30 12:50 | ECHO_ITS ---
Patient Info Name: Jailyn Javier Age: 73 years : 1950 Gender: Female Ht: 65 in Wt: 160 lbs BSA: 1.84 m2 HR: 78 bpm BP: 136 / 77 mmHg Technical Quality: Good Exam Date: 08/30/2024 12:55 PM Exam Location: Echo Lab Patient Status: Outpatient Admit Date: 08/30/2024 Staff Ordering Physician: Koffi Gleason MD Underwear Trimmer: Annette Cash RDCS Attending Provider: Koffi Gleason MD Referring Physician: Rosibel MONTERO; Exam Type: CA echo doppler w bubble study Study Info Indications - TRANSIENT CEREBRAL ISCHEMIC ATTACK Complete two-dimensional, color flow and Doppler transthoracic echocardiogram is performed with agitated saline. Contrast/Agitated Saline Contrast/Ag. Saline: Agitated Saline Amount: 20.00 ml Existing IV Access: Yes Summary 1. Left ventricular chamber dimension is normal. 2. Left ventricular systolic function is normal, estimated at 65-70%. 3. There is moderate concentric increased left ventricular wall thickness. 4. The left ventricular diastolic function is grade I diastolic dysfunction. 5. E/e' 5 is not elevated. 6. There is mild aortic valve sclerosis. 7. There is trace aortic valve regurgitation. 8. There is trace mitral valve regurgitation. 9. There is trace tricuspid valve regurgitation. 10. No pulmonary hypertension, estimated pulmonary arterial systolic pressure is 36 mmHg. Left Ventricle E/e' 5 is not elevated. Left ventricular chamber dimension is normal. Left ventricular systolic function is normal, estimated at 65-70%. There is moderate concentric increased left ventricular wall thickness. The left ventricular diastolic function is grade I diastolic dysfunction. Right Ventricle Right ventricular systolic function is normal and with normal TAPSE 2.8 cm. Right ventricular chamber dimension is normal. Left Atria Left atrial chamber dimension is normal. Right Atria Right atrial chamber dimension is normal. Atrial Septum Agitated saline injection with and without valsalva maneuver opacified right side cardiac chambers without shunt to left side cardiac chambers. Intact interatrial septum visualized by 2D and agitated saline imaging. Aortic Valve The aortic valve is trileaflet. There is mild aortic valve sclerosis. There is no aortic valve stenosis. There is trace aortic valve regurgitation. Pulmonic Valve There is no pulmonic regurgitation. Mitral Valve There is no mitral valve stenosis. There is trace mitral valve regurgitation. Tricuspid Valve There is trace tricuspid valve regurgitation. No pulmonary hypertension, estimated pulmonary arterial systolic pressure is 36 mmHg. Pericardium/Pleural There is no pericardial effusion. Inferior Vena Cava Normal inferior vena cava with >50% collapse upon inspiration consistent with normal right atrial pressure, 5 mmHg. Aorta The aortic root size at the sinus of Valsalva is normal. Left Ventricular Outflow Tract Name Value Normal LVOT 2D LVOT Diameter 2.2 cm LVOT Doppler LVOT Peak Gradient 5 mmHg LVOT Mean Gradient 3 mmHg LVOT VTI 26 cm LVOT VTI/AV VTI Ratio 0.8 LVOT Stroke Volume 98 ml LVOT CO 7.9 l/min LVOT CI 4.3 l/min/m2 Pulmonic Valve Name Value Normal RVOT Doppler RVOT Peak Gradient 1 mmHg PV Doppler PV Peak Gradient 2 mmHg Mitral Valve Name Value Normal MV Doppler MV Peak Gradient 4 mmHg MV Mean Gradient 2 mmHg MV Decel Wilkin 351 cm/s2 MV PHT 39 ms MV Area (PHT) 5.6 cm2 4.0-5.0 MV Area (Cont Eq VTI) 4.5 cm2 MV Diastolic Function MV E Peak Velocity 48 cm/s MV A Peak Velocity 80 cm/s MV E/A 0.6 MV Decel Time 136 ms MV Annular TDI MV E/e' (Septal) 6.3 <=8.0 MV E/e' (Lateral) 4.7 <=8.0 MV E/e' (Average) 5.5 Tricuspid Valve Name Value Normal TV Regurgitation Doppler TR Peak Velocity 277 cm/s TR Peak Gradient 31 mmHg Estimated PAP/RSVP RA Pressure 5 mmHg <=5 PA Systolic Pressure 36 mmHg <36 RV Systolic Pressure 36 mmHg <36 Aorta Name Value Normal Ascending Aorta Ao Root Diameter (MM) 4.1 cm Ao Root Diam Index (MM) 2.2 cm/m2 Aortic Valve Name Value Normal AV Doppler AV Peak Velocity 132 cm/s AV Peak Gradient 7 mmHg AV Mean Gradient 5 mmHg AV VTI 31 cm AV Area (Cont Eq VTI) 3.1 cm2 >=3.0 AV Area (Cont Eq Mariano) 3.3 cm2 AV Regurgitation 2D LVOT Area 3.8 cm2 AV Regurgitation Doppler AR Decel Time 1,168 ms AR Decel Wilkin 398 cm/s2 AR PHT 339 ms Ventricles Name Value Normal LV Dimensions 2D/MM IVS Diastolic Thickness (2D) 1.6 cm 0.6-1.0 LVID Diastole (2D) 4.0 cm 3.8-5.2 LVIW Diastolic Thickness (2D) 1.0 cm 0.6-0.9 LVID Systole (2D) 2.6 cm 2.2-3.5 LVOT Diameter 2.2 cm LV Mass (2D Cubed) 187.20 g 67.00-162.00 LV Mass Index (2D Cubed) 102 g/m2 43-95 Relative Wall Thickness (2D) 0.51 LV Fractional Shortening/Ejection Fraction 2D/MM LV Fractional Shortening (2D) 36 % 27-45 LV EF (2D Teicholz) 66 % 54-74 LV Diastolic Volume (4C MOD) 65 ml LV EF (4C MOD) 75 % LV Diastolic Volume (2C MOD) 54 ml LV EF (2C MOD) 75 % LV Diastolic Volume (BP MOD) 59 ml 46-106 LV Diastolic Volume Index (BP MOD) 32 ml/m2 29-61 LV Systolic Volume (BP MOD) 15 ml 14-42 LV Systolic Volume Index (BP MOD) 8 ml/m2 8-24 LV EF (BP MOD) 74 % 54-74 LV Diastolic Length (4C) 7.4 cm LV Systolic Length (4C) 5.9 cm LV Stroke Volume (4C MOD) 48 ml Atria Name Value Normal LA Dimensions LA Dimension (MM) 3.4 cm 2.7-3.8 LA Volume (4C A-L) 35 ml LA Volume (BP A-L) 42 ml RA Dimensions RA Area (4C) 14.3 cm2 <=18.0 Report Signatures
== END 2024-08-30 12:34 | disposition home or self-care (01) ==
PROVIDERS: PCP Family Medicine; Visit Provider Family Medicine
DX: G45.9 Transient cerebral ischemic attack, unspecified (principal); I51.89 Other ill-defined heart diseases; I35.8 Other nonrheumatic aortic valve disorders
CPT/HCPCS: 93306; 96375

== ENCOUNTER 2025-02-06 13:39 | Outpatient (CLI) | payer MEDICARE, SELFPAY ==
[2025-02-06 14:42] LABS: Influenza A QL RT-PCR Negative (Negative); Influenza B QL RT-PCR Negative (Negative); RSV RNA, RT-PCR Negative (Negative); SARS-CoV-2 RNA PCR Negative (Negative)
== END 2025-02-06 13:40 | disposition home or self-care (01) ==
LOC: ANHLAB 13:40
PROVIDERS: PCP Family Medicine; Visit Provider Physician Assistant Medical
DX: R50.9 Fever, unspecified (principal); R05.9 Cough, unspecified
CPT/HCPCS: 87637

== ENCOUNTER 2025-05-03 15:03 | Outpatient (CLI) | payer MEDICARE, SELFPAY ==
--- NOTE | ~2025-05-03 | MM_ITS ---
EXAMINATION: MM screening jeanna BI w milagro HISTORY: Screening TECHNIQUE: Craniocaudal and mediolateral oblique 3-D tomosynthesis images were obtained and synthetic 2-D images were generated. CAD analysis was submitted and interpreted. COMPARISON: 02/11/2017 BREAST PARENCHYMAL COMPOSITION: Dense: The breasts are heterogeneously dense, which may obscure small masses FINDINGS: There is no evidence of suspicious mass, calcification, or architectural distortion to sugg est malignancy in either breast. There has been no suspicious interval change. IMPRESSION: 1. No mammographic evidence of malignancy. 2. Recommend routine screening mammography in one year. BI-RADS Category 1: Negative Reviewed, dictated and finalized at location A.
== END 2025-05-03 15:04 | disposition home or self-care (01) ==
PROVIDERS: PCP Family Medicine; Visit Provider Physician Assistant
DX: Z12.31 Encounter for screening mammogram for malignant neoplasm of breast (principal)
CPT/HCPCS: 77063; 77067

== ENCOUNTER 2025-06-11 13:24 | Outpatient (CLI) | payer MEDICARE, SELFPAY ==
--- NOTE | ~2025-06-11 | CT_ITS ---
EXAMINATION: CT lung screening DATE: 06/11/2025 13:41 INDICATION: Nicotine dependence. TECHNIQUE: Computed tomography (CT) of the chest was performed without intravenous contrast. The dose-length product was 60.71 mGy-cm. Automated exposure control and iterative reconstruction technique were employed. COMPARISON: CT dated 06/08/2024 FINDINGS: Heart size normal. No significant pleural or pericardial effusion. There is atherosclerosis of the aorta and coronary arteries without aneurysm. No thoracic lymphadenopathy. Pulmonary arteries are enlarged consistent with pulmonary hypertension. There is calcified granuloma in the left lower lobe. There is emphysema. No endobronchial lesions. No pneumothorax. There is lingular atelectasis/scarring. No acute osseous abnormality. IMPRESSION: 1. Lung-RADS category 1: Negative. Continue annual screening with noncontrast low-dose chest CT in 12 months. Reviewed, dictated and finalized at location O. IMPRESSION: 1. Lung-RADS category 1: Negative. Continue annual screening with noncontrast l ow-dose chest CT in 12 months.
== END 2025-06-11 13:25 | disposition home or self-care (01) ==
PROVIDERS: PCP Family Medicine; Visit Provider Physician Assistant
DX: Z12.2 Encounter for screening for malignant neoplasm of respiratory organs (principal); Z87.891 Personal history of nicotine dependence
CPT/HCPCS: 71271